=== PATIENT | female | born 1995 | race Caucasian/White ===

== ENCOUNTER 2023-05-04 07:43 | Emergency (ER) | payer OTHER ==
[~2023-05-04] VITALS: Ht 170.2 cm; Wt 52.2 kg
[2023-05-04 07:54] VITALS: BP_SYST 133; PULSE 101; RESP 18; TEMP 97.6; O2SAT 100
[2023-05-04] MEDS ORDERED: LIDOCAINE 1% 10 MG/ML, 20 ML MDV INJ ONE (08:00)
[2023-05-04 08:26] VITALS: BP_SYST 133; PULSE 101; RESP 18; TEMP 97.6; O2SAT 100
== END 2023-05-04 08:37 | disposition home or self-care (01) ==
LOC: SED 07:43
DX: S61.211A Laceration without foreign body of left index finger without damage to nail, initial encounter (principal); Z88.2 Allergy status to sulfonamides; Z88.6 Allergy status to analgesic agent; Z79.899 Other long term (current) drug therapy; W26.0XXA Contact with knife, initial encounter; Y93.89 Activity, other specified; Y92.89 Other specified places as the place of occurrence of the external cause; Y99.8 Other external cause status
CPT/HCPCS: 99282